=== PATIENT | female | born 1980 | race Caucasian/White ===

== ENCOUNTER 2017-03-28 17:25 | Emergency (ER) | payer BC ==
[2017-03-28] MEDS ORDERED: Ketorolac 30 MG/ML SDV IVPUSH ONE (17:37)
[2017-03-28] MEDS ORDERED: Ondansetron 4 MG/2 ML SDV IVPUSH ONE (17:37)
[2017-03-28] MEDS ORDERED: Sodium Chloride 0.9% 1,000 ML IV ONE (17:37)
--- NOTE | 2017-03-28 17:38 | EDM.PDOC ---
<Christopher Dalton - Last Filed: 03/28/17 17:47> ED HPI GENERAL MEDICAL PROBLEM - General Chief Complaint: Gastrointestinal Problem Stated Complaint: PT HAS FOOD POISONING Time Seen by Provider: 03/28/17 17:38 Source of Information: Reports: Patient - History of Present Illness INITIAL COMMENTS - FREE TEXT/NARRATIVE: HISTORY AND PHYSICAL: History of present illness: [] Patient with acute onset right upper quadrant and epigastric pain after eating pizza rates 10 out of 10 nonradiating nausea several episodes of vomiting and diarrhea No fever chills sweats Review of systems: As per history of present illness and below otherwise all systems reviewed and negative. Past medical history: As per history of present illness and as reviewed below otherwise noncontributory. Surgical history: As per history of present illness and as reviewed below otherwise noncontributory. Social history: No reported history of drug or alcohol abuse. Family history: As per history of present illness and as reviewed below otherwise noncontributory. Physical exam: HEENT: Atraumatic, normocephalic, pupils reactive, negative for conjunctival pallor or scleral icterus, mucous membranes moist, throat clear, neck supple, nontender, trachea midline. Lungs: Clear to auscultation, breath sounds equal bilaterally, chest nontender. Heart: S1S2, regular, negative for clicks, rubs, or JVD. Abdomen: Soft, nondistended, nontender. Negative for masses or hepatosplenomegaly. Negative for costovertebral tenderness. Pelvis: Stable nontender. Genitourinary: Deferred. Rectal: Deferred. Extremities: Atraumatic, negative for cords or calf pain. Neurovascular unremarkable. Neuro: Awake, alert, oriented. Cranial nerves II through XII unremarkable. Cerebellum unremarkable. Motor and sensory unremarkable throughout. Exam nonfocal. Diagnostics: [] lab as below Ultrasound right upper quadrant EKG Therapeutics: [] 1 L normal saline bolus Zofran 8 mg IV Toradol 30 mg IV Protonix 80 mg IV Ativan 1 mg IV Impression: [] Right upper quadrant pain Anxiety Definitive disposition and diagnosis as appropriate pending reevaluation and review of above. Abdominal Pain Score (Numeric/FACES): 8 - Related Data Allergies Allergy/AdvReac Type Severity Reaction Status Date / Time Penicillins Allergy Hives Verified 03/28/17 17:37 Home Meds: Home Meds DULoxetine [Cymbalta] 60 mg PO ONETIME 03/28/17 [History] Course - Vital Signs Last Recorded V/S: Last Vital Signs Temp 37.2 C 03/28/17 17:31 Pulse 111 H 03/28/17 17:31 Resp 16 03/28/17 17:31 BP 137/96 H 03/28/17 17:31 Pulse Ox 100 03/28/17 17:31 - Orders/Labs/Meds Orders: Active Orders 24 hr Category Date Time Status EKG Documentation Completion [RC] STAT Care 03/28/17 17:48 Active Abdomen Ltd [US] Stat Exams 03/28/17 17:38 Taken Labs: Laboratory Tests 03/28/17 03/28/17 03/28/17 Range/Units 17:50 17:50 17:50 WBC 14.03 H (4.0-11.0) K/uL RBC 4.61 (4.30-5.90) M/uL Hgb 12.5 (12.0-16.0) g/dL Hct 38.8 (36.0-46.0) % MCV 84.2 (80.0-98.0) fL MCH 27.1 (27.0-32.0) pg MCHC 32.2 (31.0-37.0) g/dL RDW Std Deviation 46.6 (28.0-62.0) fl RDW Coeff of Ludwin 15 (11.0-15.0) % Plt Count 397 (150-400) K/uL MPV 8.60 (7.40-12.00) fL Nucleated RBC % 0.0 /100WBC Nucleated RBCs # 0 K/uL Sodium 138 (136-146) mmol/L Potassium 3.9 (3.5-5.1) mmol/L Chloride 106 (98-110) mmol/L Carbon Dioxide 19 L (21-31) mmol/L BUN 13 (6.0-23.0) mg/dL Creatinine 0.9 (0.6-1.5) mg/dL Est Cr Clr Drug Dosing 83.23 mL/min Estimated GFR (MDRD) > 60.0 ml/min Glucose 110 (60-110) mg/dL Calcium 9.2 (8.8-10.8) mg/dL Total Bilirubin 0.3 (0.1-1.5) mg/dL AST 24 (5-40) IU/L ALT 16 (8-54) IU/L Alkaline Phosphatase 50 (40-150) Troponin I (0.0-0.29) NG/ML Total Protein 7.4 (6.0-8.0) g/dL Albumin 4.1 (3.5-5.0) g/dL Globulin 3.3 (2.0-3.5) g/dL Albumin/Globulin Ratio 1.2 L (1.3-2.8) Amylase 74 (10-90) U/L Lipase 26 (7-80) U/L Urine Color Urine Appearance Urine pH (5.0-8.0) Ur Specific [place] (1.001-1.035) Urine Protein (NEGATIVE) mg/dL Urine Glucose (UA) (NEGATIVE) mg/dL Urine Ketones (NEGATIVE) mg/dL Urine Occult Blood (NEGATIVE) Urine Nitrite (NEGATIVE) Urine Bilirubin (NEGATIVE) Urine Urobilinogen (<2.0) EU/dL Ur Leukocyte Esterase (NEGATIVE) Urine RBC (0-2/HPF) Urine WBC (0-5/HPF) Ur Epithelial Cells (NONE-FEW) Urine Bacteria (NEGATIVE) Urine Mucus (NONE-MOD) Urine HCG, Qual (NEGATIVE) 03/28/17 03/28/17 03/28/17 Range/Units 17:50 19:24 19:24 WBC (4.0-11.0) K/uL RBC (4.30-5.90) M/uL Hgb (12.0-16.0) g/dL Hct (36.0-46.0) % MCV (80.0-98.0) fL MCH (27.0-32.0) pg MCHC (31.0-37.0) g/dL RDW Std Deviation (28.0-62.0) fl RDW Coeff of [place]win (11.0-15.0) % Plt Count (150-400) K/uL MPV (7.40-12.00) fL Nucleated RBC % /100WBC Nucleated RBCs # K/uL Sodium (136-146) mmol/L Potassium (3.5-5.1) mmol/L Chloride (98-110) mmol/L Carbon Dioxide (21-31) mmol/L BUN (6.0-23.0) mg/dL Creatinine (0.6-1.5) mg/dL Est Cr Clr Drug Dosing mL/min Estimated GFR (MDRD) ml/min Glucose (60-110) mg/dL Calcium (8.8-10.8) mg/dL Total Bilirubin (0.1-1.5) mg/dL AST (5-40) IU/L ALT (8-54) IU/L Alkaline Phosphatase (40-150) Troponin I < 0.10 (0.0-0.29) NG/ML Total Protein (6.0-8.0) g/dL Albumin (3.5-5.0) g/dL Globulin (2.0-3.5) g/dL Albumin/Globulin Ratio (1.3-2.8) Amylase (10-90) U/L Lipase (7-80) U/L Urine Color YELLOW Urine Appearance CLEAR Urine pH 8.0 (5.0-8.0) Ur Specific [place] 1.015 (1.001-1.035) Urine Protein 30 (NEGATIVE) mg/dL Urine Glucose (UA) NEGATIVE (NEGATIVE) mg/dL Urine Ketones 15 H (NEGATIVE) mg/dL Urine Occult Blood NEGATIVE (NEGATIVE) Urine Nitrite NEGATIVE (NEGATIVE) Urine Bilirubin NEGATIVE (NEGATIVE) Urine Urobilinogen 0.2 (<2.0) EU/dL Ur Leukocyte Esterase NEGATIVE (NEGATIVE) Urine RBC 2-4 (0-2/HPF) Urine WBC 0-1 (0-5/HPF) Ur Epithelial Cells OCCASIONAL (NONE-FEW) Urine Bacteria RARE (NEGATIVE) Urine Mucus LIGHT (NONE-MOD) Urine HCG, Qual NEGATIVE (NEGATIVE) Meds: Medications Discontinued Medications Generic Name Dose Route Start Last Admin Trade Name Freq PRN Reason Stop Dose Admin Sodium Chloride 1,000 mls @ 999 mls/hr 03/28/17 17:37 03/28/17 18:07 Normal Saline IV 03/28/17 18:37 999 mls/hr STAT ONE Administration Ketorolac Tromethamine 30 mg 03/28/17 17:37 03/28/17 18:08 Toradol IVPUSH 03/28/17 17:38 30 mg ONETIME ONE Administration Lorazepam 1 mg 03/28/17 17:40 03/28/17 18:07 Ativan IVPUSH 03/28/17 17:41 1 mg ONETIME ONE Administration Ondansetron HCl 8 mg 03/28/17 17:37 03/28/17 18:07 Zofran IVPUSH 03/28/17 17:38 8 mg ONETIME ONE Administration Pantoprazole Sodium 80 mg 03/28/17 17:40 03/28/17 18:07 Protonix Iv IVPUSH 03/28/17 17:41 80 mg .BOLUS ONE Administration Departure - Departure Disposition: Home, Self-Care 01 Clinical Impression: Biliary colic - Discharge Information Forms: ED Department Discharge Additional Instructions: The following information is given to patients seen in the emergency department who are being discharged to home. This information is to outline your options for follow-up care. We provide all patients seen in our emergency department with a follow-up referral. The need for follow-up, as well as the timing and circumstances, are variable depending upon the specifics of your emergency department visit. If you don't have a primary care physician on staff, we will provide you with a referral. We always advise you to contact your personal physician following an emergency department visit to inform them of the circumstance of the visit and for follow-up with them and/or the need for any referrals to a consulting specialist. The emergency department will also refer you to a specialist when appropriate. This referral assures that you have the opportunity for followup care with a specialist. All of these measure are taken in an effort to provide you with optimal care, which includes your followup. Under all circumstances we always encourage you to contact your private physician who remains a resource for coordinating your care. When calling for followup care, please make the office aware that this follow-up is from your recent emergency room visit. If for any reason you are refused follow-up, please contact the [facility] emergency department at and asked to speak to the emergency department charge nurse. [facility] Specialty Care - General Surgery Professional Building [address] [place] [address], [address] [place] [address] Followup primary medical doctor/general surgery above Cipro hydrocodone Zofran as prescribed return as needed as discussed <David Aburto - Last Filed: 03/28/17 20:11> ED HPI GENERAL MEDICAL PROBLEM - History of Present Illness INITIAL COMMENTS - FREE TEXT/NARRATIVE: Ultrasound demonstrates sludge within the gallbladder no evidence for cholecystitis on imaging I discussed case with patient regarding the slight leukocytosis she was put on Cipro and followup with Gen. surgery and her private medical doctor she'll also be given hydrocodone and Zofran for pain she is to return for persistent or worsening pain nausea vomiting fever chills as discussed ED ROS GENERAL - Review of Systems Review Of Systems: ROS reveals no pertinent complaints other than HPI. ED EXAM, GENERAL - Physical Exam Exam: See Below (See dictation) Departure - Departure Time of Disposition: 20:10 Condition: good
[2017-03-28] MEDS ORDERED: Pantoprazole 40 MG Vial IVPUSH ONE (17:40)
[2017-03-28] MEDS ORDERED: LORazepam 2 MG/ML MDV IVPUSH ONE (17:40)
[2017-03-28 18:18] LABS: CHLORIDE,CL 106 mmol/L (98-110); SODIUM,NA 138 mmol/L (136-146)
[2017-03-28 20:41] VITALS: BP 162/83
--- NOTE | 2017-03-31 11:42 | US ---
EXAM DATE: 03/28/17 PATIENT'S AGE: 36 Patient: DANIEL LOYOLA Facility: [place], [place] Site . Site : [id number] Study: US Abdomen [id number]/27/2017 7:13:24 PM Ordering Physician: Pacheco White Final Report: Indication: Right upper quadrant abdominal pain with nausea and vomiting. Findings: Visualized pancreas is unremarkable. Aortic diameter is normal. Inferior vena cava is patent. Liver has uniform echo texture. No mass or cyst. No ductal dilatation. Right kidney is sonographically normal. Length is approximately 9 cm. Gallbladder is normal. Common bile duct is 3 mm at the mj hepatis. Positive sonographic Pederson`s sign. Left kidney is sonographically unremarkable and measures approximately 11 cm. Impression: Positive sonographic Pederson`s sign in the setting of a sonographically normal gallbladder is nonspecific. Dictated by Gautam Steven MD @ Mar 28 2017 7:25PM (Electronic Signature) Report Signed by Proxy. FLAQUITA
== END 2017-03-28 20:29 | disposition home or self-care (01) ==
LOC: MW.ED 17:25
DX: K80.50 Calculus of bile duct without cholangitis or cholecystitis without obstruction (principal); Z88.0 Allergy status to penicillin
CPT/HCPCS: 36415; 76705; 80053; 81001; 81025; 82150; 83690; 84484; 85027; 93005; 96361; 96374; 96375; 99285; C9113; J1885; J2060; J2405; J7040; 99284

== ENCOUNTER 2017-09-21 07:55 | Emergency (ER) | payer BC ==
[2017-09-21] MEDS ORDERED: Ketorolac 30 MG/ML SDV IVPUSH ONE (08:15)
[2017-09-21] MEDS ORDERED: Sodium Chloride 0.9% 1,000 ML IV ONE (08:15)
[2017-09-21] MEDS ORDERED: Ondansetron 4 MG/2 ML SDV IVPUSH ONE (08:15)
--- NOTE | 2017-09-21 08:17 | EDM.PDOC ---
ED HPI GENERAL MEDICAL PROBLEM - General Chief Complaint: Abdominal Pain Stated Complaint: STOMACH PAIN Time Seen by Provider: 09/21/17 08:16 Source of Information: Reports: Patient - History of Present Illness INITIAL COMMENTS - FREE TEXT/NARRATIVE: HISTORY AND PHYSICAL: History of present illness: Abdominal pain that began acutely prior to arrival 6 out of 10 lower abdomen no fever nausea vomiting chills sweats no chest pain shortness breath headache dizziness palpitation about a urine symptoms reported by patient however she has not had a bowel movement since Thursday Review of systems: As per history of present illness and below otherwise all systems reviewed and negative. Past medical history: As per history of present illness and as reviewed below otherwise noncontributory. Surgical history: As per history of present illness and as reviewed below otherwise noncontributory. Social history: No reported history of drug or alcohol abuse. Family history: As per history of present illness and as reviewed below otherwise noncontributory. Physical exam: HEENT: Atraumatic, normocephalic, pupils reactive, negative for conjunctival pallor or scleral icterus, mucous membranes moist, throat clear, neck supple, nontender, trachea midline. Lungs: Clear to auscultation, breath sounds equal bilaterally, chest nontender. Heart: S1S2, regular, negative for clicks, rubs, or JVD. Abdomen: Soft, nondistended, nontender in the upper quadrants however tender left lower quadrant as well as right lower quadrant mild guarding no rebound. Negative for masses or hepatosplenomegaly. Negative for costovertebral tenderness. Pelvis: Stable nontender. Genitourinary: Deferred. Rectal: Deferred. Extremities: Atraumatic, negative for cords or calf pain. Neurovascular unremarkable. Neuro: Awake, alert, oriented. Cranial nerves II through XII unremarkable. Cerebellum unremarkable. Motor and sensory unremarkable throughout. Exam nonfocal. Diagnostics: []Lab as below Abdomen pelvis CT with contrast Therapeutics: []Liter normal saline bolus Toradol 30 mg IV Zofran 8 mg IV Impression: []Abdominal pain Free fluid in the pelvis History of right ovarian cyst which is not present there is a 3.3 cm left ovarian cyst Definitive disposition and diagnosis as appropriate pending reevaluation and review of above. Lower Abdominal Pain Score (Numeric/FACES): 6 - Related Data Allergies Allergy/AdvReac Type Severity Reaction Status Date / Time ciprofloxacin [From Cipro] Allergy Hives Verified 09/21/17 08:01 Penicillins Allergy Hives Verified 09/21/17 08:01 Home Meds: Home Meds LORazepam 0.5 mg PO ASDIRECTED PRN 05/08/17 [History] Norgestimate-Ethinyl Estradiol [Tri-Sprintec Tablet] 1 tab PO ASDIRECTED [History] Venlafaxine [Effexor] 75 mg PO DAILY 09/21/17 [History] Past Medical History HEENT History: Reports: None Cardiovascular History: Reports: None Respiratory History: Reports: None Gastrointestinal History: Reports: None Genitourinary History: Reports: None 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: Other (See Below) Other OB/BYN History: Musculoskeletal History: Reports: None Neurological History: Reports: None Psychiatric History: Reports: Anxiety Endocrine/Metabolic History: Reports: None Hematologic History: Reports: None Immunologic History: Reports: None Oncologic (Cancer) History: Reports: None Dermatologic History: Reports: None - Infectious Disease History Infectious Disease History: Reports: None - Past Surgical History Head Surgeries/Procedures: Reports: None Social & Family History - Family History Family Medical History: Noncontributory - Tobacco Use Smoking Status *Q: Current Some Day Smoker Years of Tobacco use: 10 Packs/Tins Daily: 0.1 - Caffeine Use Caffeine Use: Reports: Coffee - Recreational Drug Use Recreational Drug Use: No ED ROS GENERAL - Review of Systems Review Of Systems: ROS reveals no pertinent complaints other than HPI. ED EXAM, GENERAL - Physical Exam Exam: See Below Course - Vital Signs Last Recorded V/S: Last Vital Signs Temp 97.4 F 09/21/17 08:07 Pulse 94 09/21/17 08:07 Resp 18 09/21/17 08:07 BP 116/77 09/21/17 08:07 Pulse Ox 100 09/21/17 08:07 - Orders/Labs/Meds Labs: Laboratory Tests 09/21/17 09/21/17 09/21/17 Range/Units 08:05 08:05 08:05 WBC 6.06 (4.0-11.0) K/uL RBC 4.06 L (4.30-5.90) M/uL Hgb 11.1 L (12.0-16.0) g/dL Hct 34.3 L (36.0-46.0) % MCV 84.5 (80.0-98.0) fL MCH 27.3 (27.0-32.0) pg MCHC 32.4 (31.0-37.0) g/dL RDW Std Deviation 41.0 (28.0-62.0) fl RDW Coeff of [place]win 13 (11.0-15.0) % Plt Count 370 (150-400) K/uL MPV 8.80 (7.40-12.00) fL Neut % (Auto) 57.1 (48.0-80.0) % Lymph % (Auto) 35.5 (16.0-40.0) % [place] % (Auto) 6.3 (0.0-15.0) % Eos % (Auto) 0.8 (0.0-7.0) % Baso % (Auto) 0.3 (0.0-1.5) % Neut # (Auto) 3.5 (1.4-5.7) K/uL Lymph # (Auto) 2.2 (0.6-2.4) K/uL [place] # (Auto) 0.4 (0.0-0.8) K/uL Eos # (Auto) 0.1 (0.0-0.7) K/uL Baso # (Auto) 0.0 (0.0-0.1) K/uL Nucleated RBC % 0.0 /100WBC Nucleated RBCs # 0 K/uL Sodium 137 (136-146) mmol/L Potassium 3.5 (3.5-5.1) mmol/L Chloride 107 (98-110) mmol/L Carbon Dioxide 22 (21-31) mmol/L BUN 14 (6.0-23.0) mg/dL Creatinine 0.8 (0.6-1.5) mg/dL Est Cr Clr Drug Dosing 97.13 mL/min Estimated GFR (MDRD) > 60.0 ml/min Glucose 94 (60-110) mg/dL Calcium 8.6 L (8.8-10.8) mg/dL Total Bilirubin 0.4 (0.1-1.5) mg/dL AST 18 (5-40) IU/L ALT 16 (8-54) IU/L Alkaline Phosphatase 48 (40-150) C-Reactive Protein (0.0-0.5) mg/dL Total Protein 6.4 (6.0-8.0) g/dL Albumin 3.5 (3.5-5.0) g/dL Globulin 2.9 (2.0-3.5) g/dL Albumin/Globulin Ratio 1.2 L (1.3-2.8) Amylase 61 (10-90) U/L Lipase 34 (7-80) U/L HCG, Quant < 1.2 mIU/mL Urine Color Urine Appearance Urine pH (5.0-8.0) Ur Specific [place] (1.001-1.035) Urine Protein (NEGATIVE) mg/dL Urine Glucose (UA) (NEGATIVE) mg/dL Urine Ketones (NEGATIVE) mg/dL Urine Occult Blood (NEGATIVE) Urine Nitrite (NEGATIVE) Urine Bilirubin (NEGATIVE) Urine Urobilinogen (<2.0) EU/dL Ur Leukocyte Esterase (NEGATIVE) Urine RBC (0-2/HPF) Urine WBC (0-5/HPF) Ur Epithelial Cells (NONE-FEW) Urine Bacteria (NEGATIVE) 09/21/17 09/21/17 Range/Units 08:05 08:10 WBC (4.0-11.0) K/uL RBC (4.30-5.90) M/uL Hgb (12.0-16.0) g/dL Hct (36.0-46.0) % MCV (80.0-98.0) fL MCH (27.0-32.0) pg MCHC (31.0-37.0) g/dL RDW Std Deviation (28.0-62.0) fl RDW Coeff of [place] (11.0-15.0) % Plt Count (150-400) K/uL MPV (7.40-12.00) fL Neut % (Auto) (48.0-80.0) % Lymph % (Auto) (16.0-40.0) % [place] % (Auto) (0.0-15.0) % Eos % (Auto) (0.0-7.0) % Baso % (Auto) (0.0-1.5) % Neut # (Auto) (1.4-5.7) K/uL Lymph # (Auto) (0.6-2.4) K/uL [place] # (Auto) (0.0-0.8) K/uL Eos # (Auto) (0.0-0.7) K/uL Baso # (Auto) (0.0-0.1) K/uL Nucleated RBC % /100WBC Nucleated RBCs # K/uL Sodium (136-146) mmol/L Potassium (3.5-5.1) mmol/L Chloride (98-110) mmol/L Carbon Dioxide (21-31) mmol/L BUN (6.0-23.0) mg/dL Creatinine (0.6-1.5) mg/dL Est Cr Clr Drug Dosing mL/min Estimated GFR (MDRD) ml/min Glucose (60-110) mg/dL Calcium (8.8-10.8) mg/dL Total Bilirubin (0.1-1.5) mg/dL AST (5-40) IU/L ALT (8-54) IU/L Alkaline Phosphatase (40-150) C-Reactive Protein 0.43 (0.0-0.5) mg/dL Total Protein (6.0-8.0) g/dL Albumin (3.5-5.0) g/dL Globulin (2.0-3.5) g/dL Albumin/Globulin Ratio (1.3-2.8) Amylase (10-90) U/L Lipase (7-80) U/L HCG, Quant mIU/mL Urine Color YELLOW Urine Appearance CLEAR Urine pH 7.5 (5.0-8.0) Ur Specific [place] 1.015 (1.001-1.035) Urine Protein NEGATIVE (NEGATIVE) mg/dL Urine Glucose (UA) NEGATIVE (NEGATIVE) mg/dL Urine Ketones NEGATIVE (NEGATIVE) mg/dL Urine Occult Blood NEGATIVE (NEGATIVE) Urine Nitrite NEGATIVE (NEGATIVE) Urine Bilirubin NEGATIVE (NEGATIVE) Urine Urobilinogen 0.2 (<2.0) EU/dL Ur Leukocyte Esterase NEGATIVE (NEGATIVE) Urine RBC 0-1 (0-2/HPF) Urine WBC 0-1 (0-5/HPF) Ur Epithelial Cells RARE (NONE-FEW) Urine Bacteria RARE (NEGATIVE) Meds: Medications Discontinued Medications Generic Name Dose Route Start Last Admin Trade Name Freq PRN Reason Stop Dose Admin Sodium Chloride 1,000 mls @ 999 mls/hr 09/21/17 08:15 09/21/17 08:26 Normal Saline IV 09/21/17 09:15 999 mls/hr STAT ONE Administration Iopamidol 100 ml 09/21/17 09:54 09/21/17 09:56 Isovue-370 (76%) IVPUSH 09/21/17 09:55 100 ml ONETIME STA Administration Ketorolac Tromethamine 30 mg 09/21/17 08:15 09/21/17 08:26 Toradol IVPUSH 09/21/17 08:16 30 mg ONETIME ONE Administration Ondansetron HCl 8 mg 09/21/17 08:15 09/21/17 08:26 Zofran IVPUSH 09/21/17 08:16 8 mg ONETIME ONE Administration Departure - Departure Time of Disposition: 10:36 Disposition: Home, Self-Care 01 Condition: Good Clinical Impression: Ovarian cyst, Abdominal pain - Discharge Information Forms: ED Department Discharge Additional Instructions: Medication as prescribed Return if symptoms persist or worsen Follow-up with gynecology, call number below for appropriate appointment [facility] [place] [phone] The following information is given to patients seen in the emergency department who are being discharged to home. This information is to outline your options for follow-up care. We provide all patients seen in our emergency department with a follow-up referral. The need for follow-up, as well as the timing and circumstances, are variable depending upon the specifics of your emergency department visit. If you don't have a primary care physician on staff, we will provide you with a referral. We always advise you to contact your personal physician following an emergency department visit to inform them of the circumstance of the visit and for follow-up with them and/or the need for any referrals to a consulting specialist. The emergency department will also refer you to a specialist when appropriate. This referral assures that you have the opportunity for follow-up care with a specialist. All of these measure are taken in an effort to provide you with optimal care, which includes your follow-up. Under all circumstances we always encourage you to contact your private physician who remains a resource for coordinating your care. When calling for follow-up care, please make the office aware that this follow-up is from your recent emergency room visit. If for any reason you are refused follow-up, please contact the [facility] emergency department at and asked to speak to the emergency department charge nurse.
[2017-09-21 08:40] LABS: CHLORIDE,CL 107 mmol/L (98-110); SODIUM,NA 137 mmol/L (136-146)
[2017-09-21] MEDS ORDERED: Iopamidol 755 Mg/ML 100 ML Bottle IVPUSH STA (09:54)
--- NOTE | 2017-09-21 10:07 | CT ---
CT of the abdomen and pelvis with contrast. HISTORY: Pain TECHNIQUE: Axial CT images were obtained of the abdomen and pelvis following administration of 96 mL of Isovue-370 in the right antecubital fossa without complication. Coronal and sagittal reconstructio ns obtained. Comparison: 09/21/2017. FINDINGS: The lung bases are clear, no pleural effusion. The liver, spleen, adrenal glands, pancreas appear normal. The gallbladder is normal. There is no bul ky retroperitoneal lymphadenopathy or abdominal ascites. The kidneys enhance and function symmetrically without evidence of obstructive uropathy. There is a t iny cyst within the midpole of the right kidney. The large and small bowel are normal in caliber without evidence of obstruction. No focal pericolonic inflammation. The appendix appears normal in size. There is small amount of free fluid within the pe lvis. There is a 3.3 cm left ovarian cyst. The left ovary is noted within the midline region anterior to the uterus. The urinary bladder is normal. No free air. There are stable small lucencies noted within the T11 vertebral body, grossly unchanged. Otherwise no suspicious osseous abnormalities identified. IMPRESSION: 1. Small amount of free pelvic fluid, etiology is uncertain, this is slightly more prominent in the n ormal physiologic amount. 2. There is a 3.3 cm left ovarian cyst.
[2017-09-21 11:03] VITALS: BP 119/85
== END 2017-09-21 11:02 | disposition home or self-care (01) ==
LOC: MW.ED 07:55
DX: N83.202 Unspecified ovarian cyst, left side (principal); F17.210 Nicotine dependence, cigarettes, uncomplicated; Z88.1 Allergy status to other antibiotic agents; Z88.0 Allergy status to penicillin; Z79.899 Other long term (current) drug therapy
CPT/HCPCS: 36415; 74177; 80053; 81001; 82150; 83690; 84702; 85025; 86140; 96361; 96374; 96375; 99284; J1885; J2405; J7040; Q9967; 99283

== ENCOUNTER 2019-02-17 06:19 | Day surgery (SDC) | payer BC ==
[2019-02-16 14:47] LABS: CHLORIDE,CL 105 mmol/L (98-107); SODIUM,NA 140 mmol/L (136-145)
[~2019-02-17 06:19] MED LIST: Sodium Chloride 0.9% 10 ML SDV IV PRN; Sodium Chloride 0.9% 10 ML Syringe FLUSH PRN; Sodium Chloride 0.9% 2.5 ML Syringe FLUSH PRN; ceFAZolin 2 GM in Premix Bag 1 BAG IV ONE
[2019-02-17] MEDS ORDERED: Ondansetron 4 MG/2 ML SDV ONE (06:56)
[2019-02-17] MEDS ORDERED: Propofol 200 MG/20 ML SDV ONE (06:56)
[2019-02-17] MEDS ORDERED: Rocuronium 100 MG/10 ML Syringe ONE (06:56)
[2019-02-17] MEDS ORDERED: Lidocaine 2% 5 ML SDV ONE (06:56)
[2019-02-17] MEDS ORDERED: Midazolam 1 MG/ML 2 ML SDV ONE (06:56)
[2019-02-17] MEDS ORDERED: fentaNYL 250 MCG/5 ML SDV ONE (06:56)
[2019-02-17] MEDS ORDERED: Neostigmine Methylsulfate 1 MG/ML 5 ML Syringe ONE (06:58)
[2019-02-17] MEDS ORDERED: Glycopyrrolate 0.2 MG/ML SDV ONE (06:58)
[2019-02-17] MEDS: Lactated Ringers 1,000 ML IV SCH ×3 (07:25→23:30)
--- NOTE | 2019-02-17 07:43 | PCM.PREANE ---
Preanesthetic Assessment - Anesthesia/Transfusion/Family Hx Anesthesia History: Prior Anesthesia Without Reaction Family History of Anesthesia Reaction: No Transfusion History: No Prior Transfusion(s) - Review of Systems General: No Symptoms Pulmonary: No Symptoms Cardiovascular: No Symptoms Gastrointestinal: No Symptoms Neurological: No Symptoms Other: Reports: None - Physical Assessment NPO Status Date: 02/17/19 NPO Status Time: 06:30 O2 Sat by Pulse Oximetry: 96 Respiratory Rate: 18 Vital Signs: Last Vital Signs Temp 97.2 F 02/17/19 07:20 Pulse 99 02/17/19 07:20 Resp 18 02/17/19 07:20 BP 114/74 02/17/19 07:20 Pulse Ox 96 02/17/19 07:20 Height: 5 ft 8 in Weight: 76.657 kg ASA Class: 2 Mental Status: Alert & Oriented x3 Airway Class: Mallampati = 2 Dentition: Reports: Normal Dentition ROM/Head Extension: Full Lungs: Clear to Auscultation, Normal Respiratory Effort Cardiovascular: Regular Rate, Regular Rhythm - Lab Values: Laboratory Last Values WBC 5.79 K/uL (4.0-11.0) 02/16/19 14:21 RBC 4.08 M/uL (4.30-5.90) L 02/16/19 14:21 Hgb 9.0 g/dL (12.0-16.0) L 02/16/19 14:21 Hct 30.1 % (36.0-46.0) L 02/16/19 14:21 MCV 73.8 fL (80.0-98.0) L 02/16/19 14:21 MCH 22.1 pg (27.0-32.0) L 02/16/19 14:21 MCHC 29.9 g/dL (31.0-37.0) L 02/16/19 14:21 RDW Std Deviation 39.8 fl (28.0-62.0) 02/16/19 14:21 RDW Coeff of Ludwin 15 % (11.0-15.0) 02/16/19 14:21 Plt Count 440 K/uL (150-400) H 02/16/19 14:21 MPV 8.00 fL (7.40-12.00) 02/16/19 14:21 Sodium 140 mmol/L (136-145) 02/16/19 14:21 Potassium 3.4 mmol/L (3.5-5.1) L 02/16/19 14:21 Chloride 105 mmol/L (98-107) 02/16/19 14:21 Carbon Dioxide 27.4 mmol/L (21.0-32.0) 02/16/19 14:21 BUN 12 mg/dL (7.0-18.0) 02/16/19 14:21 Creatinine 0.9 mg/dL (0.6-1.0) 02/16/19 14:21 Est Cr Clr Drug Dosing 84.66 mL/min 02/16/19 14:21 Estimated GFR (MDRD) > 60.0 ml/min 02/16/19 14:21 Glucose 107 mg/dL (74-106) H 02/16/19 14:21 Calcium 8.4 mg/dL (8.5-10.1) L 02/16/19 14:21 HCG, Qual NEGATIVE (NEG) 02/16/19 14:21 Blood Type A POSITIVE 02/16/19 14:21 Antibody Screen NEGATIVE 02/16/19 14:21 Crossmatch See Detail 02/16/19 14:21 - Allergies Allergies/Adverse Reactions: Allergies Allergy/AdvReac Type Severity Reaction Status Date / Time ciprofloxacin [From Cipro] Allergy Hives Verified 02/11/19 15:11 Penicillins Allergy "sores on Verified 02/11/19 15:10 lips" - Anesthesia Plan Pre-Op Medication Ordered: Other (scop) - Acknowledgements Anesthesia Type Planned: General Anesthesia Pt an Appropriate Candidate for the Planned Anesthesia: Yes Alternatives and Risks of Anesthesia Discussed w Pt/Guardian: Yes Pt/Guardian Understands and Agrees with Anesthesia Plan: Yes Additional Comments: PMH: anemia, smoker PLAN: get PreAnesthesia Questionnaire HEENT History: Reports: Other (See Below) Other HEENT History: wears glasses Cardiovascular History: Reports: None Respiratory History: Reports: None Gastrointestinal History: Reports: Pancreatitis Genitourinary History: Reports: None [employer] History: Reports: Musculoskeletal History: Reports: Fracture Other Musculoskeletal History: hx fx ankle Neurological History: Reports: None Psychiatric History: Reports: Anxiety, Depression Endocrine/Metabolic History: Reports: None Hematologic History: Reports: None Immunologic History: Reports: None Oncologic (Cancer) History: Reports: None Dermatologic History: Reports: None - Infectious Disease History Infectious Disease History: Reports: None - Past Surgical History Head Surgeries/Procedures: Reports: None HEENT Surgical History: Reports: Adenoidectomy, Tonsillectomy Respiratory Surgical History: Reports: None GI Surgical History: Reports: None Female Surgical History: Reports: Section Endocrine Surgical History: Reports: None Neurological Surgical History: Reports: None Musculoskeletal Surgical History: Reports: None Oncologic Surgical History: Reports: None Dermatological Surgical History: Reports: None - SUBSTANCE USE Smoking Status *Q: Current Some Day Smoker Tobacco Use Within Last Twelve Months: Cigarettes Recreational Drug Use History: No - HOME MEDS Home Medications: Home Meds Venlafaxine [Effexor] 150 mg PO DAILY 09/21/17 [History] LORazepam 1 mg PO ASDIRECTED PRN 02/11/19 [History] - CURRENT (IN HOUSE) MEDS Current Meds: Current Medications Lactated Ringer's (Ringers, Lactated) 1,000 mls @ 125 mls/hr IV ASDIRECTED SONIA Last Admin: 02/17/19 07:25 Dose: 125 mls/hr Sodium Chloride (Saline Flush) 10 ml FLUSH ASDIRECTED PRN PRN Reason: Keep Vein Open Sodium Chloride (Saline Flush) 2.5 ml FLUSH ASDIRECTED PRN PRN Reason: Keep Vein Open Sodium Chloride (Normal Saline) 10 ml IV ASDIRECTED PRN PRN Reason: IV Use Discontinued Medications Fentanyl (Sublimaze) Confirm Administered Dose 250 mcg .ROUTE .STK-MED ONE Stop: 02/17/19 06:57 Glycopyrrolate (Robinul) Confirm Administered Dose 0.4 mg .ROUTE .STK-MED ONE Stop: 02/17/19 06:59 Cefazolin Sodium/Dextrose 2 gm (/ Premix) 50 mls @ 100 mls/hr IV ONETIME ONE Stop: 02/16/19 13:19 Lidocaine (Xylocaine-Mpf 2%) Confirm Administered Dose 5 ml .ROUTE .STK-MED ONE Stop: 02/17/19 06:57 Midazolam HCl (Versed 1 Mg/Ml) Confirm Administered Dose 2 mg .ROUTE .STK-MED ONE Stop: 02/17/19 06:57 Neostigmine Methylsulfate (Neostigmine) Confirm Administered Dose 5 mg .ROUTE .STK-MED ONE Stop: 02/17/19 06:59 Ondansetron HCl (Zofran) Confirm Administered Dose 4 mg .ROUTE .ST-MED ONE Stop: 02/17/19 06:57 Propofol (Diprivan 20 Ml) Confirm Administered Dose 200 mg .ROUTE .STK-MED ONE Stop: 02/17/19 06:57 Rocuronium [place] (Zemuron) Confirm Administered Dose 100 mg .ROUTE .[facility] ONE Stop: 02/17/19 06:57 Succinylcholine Chloride (Succinylcholine Chloride) Confirm Administered Dose 200 mg .ROUTE .[facility] ONE Stop: 02/17/19 06:57
[2019-02-17] MEDS ORDERED: Fluorescein 5 ML Vial ONE (07:49)
[2019-02-17] MEDS ORDERED: Scopolamine 1.5 MG Transdermal Patch TRDERM PRN (07:50)
[2019-02-17] MEDS ORDERED: Sodium Chloride 0.9% 20 ML ONE (07:55)
[2019-02-17] MEDS ORDERED: ceFAZolin 1 GM Vial ONE (07:55)
[2019-02-17] MEDS ORDERED: Furosemide 40 MG/4 ML VIAL ONE (08:11)
[2019-02-17] MEDS ORDERED: ePHEDrine 50 MG/ML SDV ONE (08:27)
[2019-02-17] MEDS ORDERED: Phenylephrine/Normal Saline 100 MCG/ML 10 ML Syringe ONE (08:30)
[2019-02-17] MEDS ORDERED: Metoprolol Tartrate 5 MG/5 ML SDV ONE (08:34)
[2019-02-17] MEDS ORDERED: HYDROmorphone 2 MG/ML Syringe ONE (08:38)
[2019-02-17] MEDS ORDERED: fentaNYL 100 MCG/2 ML SDV ONE (08:46)
[2019-02-17] MEDS ORDERED: Dexamethasone 4 MG/ML 5 ML MDV ONE (08:47)
[2019-02-17] MEDS ORDERED: Naloxone 0.4 MG/ML Syringe IVPUSH PRN (08:59)
[2019-02-17] MEDS ORDERED: Albuterol 0.083% 2.5 MG/3 ML Neb Soln NEB PRN (08:59)
[2019-02-17] MEDS ORDERED: fentaNYL 100 MCG/2 ML SDV IVPUSH PRN (08:59)
[2019-02-17] MEDS ORDERED: Atropine 0.1 MG/ML 10 ML Syringe IVPUSH PRN ×2 (08:59)
[2019-02-17] MEDS ORDERED: 50% Dextrose in Water 50 ML Syringe IVPUSH PRN (08:59)
[2019-02-17] MEDS ORDERED: EPINEPHrine 1:10,000 1 MG/10 ML Syringe IVPUSH PRN (08:59)
[2019-02-17] MEDS ORDERED: Octyl 2-Cyanoacrylate 1 Tube ONE (09:44)
[2019-02-17] MEDS ORDERED: Acetaminophen/oxyCODONE 325-5 MG Tab PO PRN (09:49)
[2019-02-17] MEDS ORDERED: Ondansetron 4 MG/2 ML SDV IVPUSH PRN (09:49)
[2019-02-17] MEDS ORDERED: Promethazine 25 MG/ML SDV IM PRN (09:49)
[2019-02-17] MEDS ORDERED: Morphine 4 MG/ML Syringe IVPUSH PRN (09:49)
[2019-02-17] MEDS ORDERED: Ketorolac 30 MG/ML SDV IVPUSH PRN (09:49)
[2019-02-17] MEDS ORDERED: Ketorolac 30 MG/ML SDV IVPUSH ONE (09:49)
--- NOTE | 2019-02-17 09:53 | PCM.OPNOTE ---
- General Post-Op/Procedure Note Date of Surgery/Procedure: 02/17/19 Operative Procedure(s): TLH and Cystoscopy Pre Op Diagnosis: Bleeding Post-Op Diagnosis: Same Anesthesia Technique: General LMA Primary Surgeon: Thomas Abdul EBL in mLs: 100 Complications: None Condition: Good
--- NOTE | 2019-02-17 11:06 | PCM.POSTAN ---
POST ANESTHESIA ASSESSMENT - MENTAL STATUS Mental Status: Alert, Oriented - VITAL SIGNS Pulse Rate: 110 SaO2: 99 Resp Rate: 12 - RESPIRATORY Respiratory Status: Respiratory Rate WNL, Airway Patent, O2 Saturation Stable - CARDIOVASCULAR CV Status: Pulse Rate WNL, Blood Pressure Stable - GASTROINTESTINAL GI Status: No Symptoms - POST OP HYDRATION Hydration Status: Adequate & Stable
[2019-02-17] MEDS ORDERED: ceFAZolin 2 GM in Premix Bag 1 BAG IV ONE (11:45)
--- NOTE | 2019-02-17 15:22 | OR ---
SURGEON: Thomas Abdul MD DATE OF PROCEDURE: PREOPERATIVE DIAGNOSIS: Menometrorrhagia. POSTOPERATIVE DIAGNOSIS: Menometrorrhagia. OPERATION PERFORMED: Total laparoscopic hysterectomy, laparoscopic salpingectomy preserving both ovaries, and cystoscopy. 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 ANESTHESIA: General with endotracheal intubation, Mr. Barry Holden and Dr. Ruiz. ESTIMATED BLOOD LOSS: 100 mL. COMPLICATIONS: None. FINDINGS: Uterus is about 10 to 11 week size. Both tubes and ovaries essentially are normal. INDICATION FOR SURGERY: [place] referred to the admit note. PROCEDURE IN DETAIL: The patient was brought to the OR, properly identified, and after adequate level of anesthesia, the patient was placed in lithotomy position with an access to the abdomen and the vagina. The patient was prepped and draped in sterile fashion as usual. Olivares catheter was placed in the bladder for drainage and the compromised manipulator is placed in the uterus for manipulation and then the operation is shifted abdominally. Stab wound was done beneath the umbilicus. The Veress needle placed in the peritoneal cavity and that cavity insufflated to 3.5 L of carbon dioxide. Then, utilizing the Visiport technique, 5 mm trocar centered infraumbilically and then after that, the patient was placed in steep Trendelenburg. A 10/12 trocar placed in the left iliac fossa and 5 mm trocar in the right iliac fossa. The operation started by identifying the organ in the pelvis, the uterus, tubes, and ovary identifying the landmark of the pelvis and the pelvic sidewall. Once we were done, the superior pedicle was coagulated and transected using the SAMAN-7 Harmonic scapula. The tubes are included with the specimen, the ovary is preserved, and then the round ligament on both sides coagulated and transected in the same manner, and then the anterior leaf of the broad ligament dissected downward medially pushing the bladder completely away from the operative field. Once that is done, then the uterine vessel was skeletonized, coagulated, and transected at the level of the manipulator on both sides using the Saman Harmonic scapula. Next step is circular incision in the vaginal mucosa around the tip of the manipulator is done detaching the cervix from its attachment to the vagina. Cervix and both tubes were removed vaginally and then pneumoperitoneum re-established by placing vaginal pack in the vagina. A thorough irrigation of all operative field shows no oozing, no bleeding, and inspection of all the pedicles. We proceeded to close the vagina laparoscopically using 2-0 PDS interrupted suture. While we were doing that, we asked Anesthesia to give the patient fluorescein and after closing the vagina and making sure that there is no bleeding and there is no oozing from all the pedicle, the abdomen was deflated, and the patient was taken off Trendelenburg and cystoscopy. Olivares catheter was removed and cystoscopy was performed. The bladder was intact. Both ureteric orifices seen with the dye coming from both of them. Thus, the patency of both ureters verified. Satisfied with these findings, the cystoscopy ended, and then the laparoscopic incision was closed with 2-0 Vicryl layer. Instrument and sponge count were correct. The patient tolerated the procedure well, went to recovery room in stable general condition. JARET / ROGELIO /[id number]
[2019-02-17] MEDS: Acetaminophen/oxyCODONE 325-5 MG Tab PO PRN (20:09)
[2019-02-18] MEDS: Acetaminophen/oxyCODONE 325-5 MG Tab PO PRN (03:34)
[2019-02-18 05:40] LABS: CHLORIDE,CL 108 mmol/L (98-107); SODIUM,NA 142 mmol/L (136-145)
[2019-02-18 07:50] VITALS: BP 98/61
--- NOTE | 2019-02-18 09:53 | PCM.SURGPN ---
- General Info Date of Service: 02/18/19 POD#: 1 Functional Status: Reports: Pain Controlled - Review of Systems General: Reports: No Symptoms HEENT: Reports: No Symptoms Pulmonary: Reports: No Symptoms Cardiovascular: Reports: No Symptoms Gastrointestinal: Reports: No Symptoms Genitourinary: Reports: No Symptoms Musculoskeletal: Reports: No Symptoms Skin: Reports: No Symptoms Neurological: Reports: No Symptoms Psychiatric: Reports: No Symptoms - Patient Data Vitals - Most Recent: Last Vital Signs Temp 36.8 C 02/18/19 07:50 Pulse 82 02/18/19 07:50 Resp 16 02/18/19 07:50 BP 98/61 02/18/19 07:50 Pulse Ox 97 02/18/19 07:50 Weight - Most Recent: 76.657 kg I&O - Last 24 Hours: Intake & Output 02/17/19 02/18/19 02/18/19 22:59 06:59 14:59 Intake Total 1884 2424 240 Output Total 2820 3050 Balance -936 -626 240 Lab Results Last 24 Hrs: Laboratory Results - last 24 hr 02/18/19 02/18/19 Range/Units 05:00 05:00 WBC 8.99 (4.0-11.0) K/uL RBC 3.38 L (4.30-5.90) M/uL Hgb 7.4 L (12.0-16.0) g/dL Hct 25.2 L (36.0-46.0) % MCV 74.6 L (80.0-98.0) fL MCH 21.9 L (27.0-32.0) pg MCHC 29.4 L (31.0-37.0) g/dL RDW Std Deviation 41.2 (28.0-62.0) fl RDW Coeff of Ludwin 15 (11.0-15.0) % Plt Count 319 (150-400) K/uL MPV 8.40 (7.40-12.00) fL Neut % (Auto) 61.0 (48.0-80.0) % Lymph % (Auto) 29.9 (16.0-40.0) % [place] % (Auto) 8.9 (0.0-15.0) % Eos % (Auto) 0.1 (0.0-7.0) % Baso % (Auto) 0.1 (0.0-1.5) % Neut # (Auto) 5.5 (1.4-5.7) K/uL Lymph # (Auto) 2.7 H (0.6-2.4) K/uL [place] # (Auto) 0.8 (0.0-0.8) K/uL Eos # (Auto) 0.0 (0.0-0.7) K/uL Baso # (Auto) 0.0 (0.0-0.1) K/uL Nucleated RBC % 0.0 /100WBC Nucleated RBCs # 0 K/uL Sodium 142 (136-145) mmol/L Potassium 3.9 (3.5-5.1) mmol/L Chloride 108 H (98-107) mmol/L Carbon Dioxide 27.7 (21.0-32.0) mmol/L BUN 8 (7.0-18.0) mg/dL Creatinine 0.9 (0.6-1.0) mg/dL Est Cr Clr Drug Dosing 84.66 mL/min Estimated GFR (MDRD) > 60.0 ml/min Glucose 92 (74-106) mg/dL Calcium 8.0 L (8.5-10.1) mg/dL Med Orders - Current: Current Medications Albuterol (Proventil Neb Soln) 2.5 mg NEB ONETIME PRN PRN Reason: Wheezing Atropine Sulfate (Atropine 0.1 Mg/Ml) 0.5 mg IVPUSH ASDIRECTED PRN PRN Reason: Hypo-perfusion Atropine Sulfate (Atropine 0.1 Mg/Ml) 1 mg IVPUSH ASDIRECTED PRN PRN Reason: Hypo-Perfusion Dextrose/Water (Dextrose 50% In Water) 50 ml IVPUSH ASDIRECTED PRN PRN Reason: Hypoglycemia Epinephrine HCl (Epinephrine 1:10,000) 1 mg IVPUSH ASDIRECTED PRN PRN Reason: ACLS Guidelines Fentanyl (Sublimaze) 50 mcg IVPUSH Q5M PRN PRN Reason: Pain Lactated Ringer's (Ringers, Lactated) 1,000 mls @ 125 mls/hr IV ASDIRECTED [facility] Last Admin: 02/17/19 23:30 Dose: 125 mls/hr Ketorolac Tromethamine (Toradol) 30 mg IVPUSH Q6H PRN PRN Reason: Pain (severe 7-10) Stop: 02/22/19 09:49 Last Admin: 02/17/19 18:37 Dose: 30 mg Morphine Sulfate (Morphine) 4 mg IVPUSH Q2H PRN PRN Reason: Pain (severe 7-10) Naloxone HCl (Narcan) 0.1 mg IVPUSH ASDIRECTED PRN PRN Reason: Respiratory Depression Ondansetron HCl (Zofran) 4 mg IVPUSH Q6H PRN PRN Reason: Nausea/Vomiting Oxycodone/Acetaminophen (Percocet 325-5 Mg) 1 tab PO Q4H PRN PRN Reason: Pain (moderate 4-6) Oxycodone/Acetaminophen (Percocet 325-5 Mg) 2 tab PO Q4H PRN PRN Reason: Pain (moderate 4-6) Last Admin: 02/18/19 03:34 Dose: 2 tab Promethazine HCl (Phenergan) 25 mg IM Q6H PRN PRN Reason: Nausea/Vomiting Scopolamine (Transderm-Scop) 1.5 mg TRDERM Q72H PRN PRN Reason: Nausea/Vomiting Last Admin: 02/17/19 07:50 Dose: 1.5 mg Sodium Chloride (Saline Flush) 10 ml FLUSH ASDIRECTED PRN PRN Reason: Keep Vein Open Sodium Chloride (Saline Flush) 2.5 ml FLUSH ASDIRECTED PRN PRN Reason: Keep Vein Open Sodium Chloride (Normal Saline) 10 ml IV ASDIRECTED PRN PRN Reason: IV Use Discontinued Medications Cefazolin Sodium (Ancef) Confirm Administered Dose 2 gm .ROUTE .STK-MED ONE Stop: 02/17/19 07:56 Dexamethasone (Dexamethasone) Confirm Administered Dose 20 mg .ROUTE .STK-MED ONE Stop: 02/17/19 08:48 Ephedrine Sulfate (Ephedrine Sulfate) Confirm Administered Dose 50 mg .ROUTE .STK-MED ONE Stop: 02/17/19 08:28 Fentanyl (Sublimaze) Confirm Administered Dose 250 mcg .ROUTE .STK-MED ONE Stop: 02/17/19 06:57 Fentanyl (Sublimaze) Confirm Administered Dose 100 mcg .ROUTE .STK-MED ONE Stop: 02/17/19 08:47 Fluorescein Sodium (Ak-Fluor) Confirm Administered Dose 5 ml .ROUTE .STK-MED ONE Stop: 02/17/19 07:50 Furosemide (Lasix) Confirm Administered Dose 40 mg .ROUTE .[facility] ONE Stop: 02/17/19 08:12 Glycopyrrolate (Robinul) Confirm Administered Dose 0.4 mg .ROUTE .[facility] ONE Stop: 02/17/19 06:59 Hydromorphone HCl (Dilaudid) Confirm Administered Dose 2 mg .ROUTE .[facility] ONE Stop: 02/17/19 08:39 Cefazolin Sodium/Dextrose 2 gm (/ Premix) 50 mls @ 100 mls/hr IV ONETIME ONE Stop: 02/16/19 13:19 Last Admin: 02/17/19 11:39 Dose: Not Given Sodium Chloride (Normal Saline) Confirm Administered Dose 20 mls @ as directed .ROUTE .[facility] ONE Stop: 02/17/19 07:56 Cefazolin Sodium/Dextrose 2 gm (/ Premix) 50 mls @ 100 mls/hr IV ONETIME ONE Stop: 02/17/19 12:14 Last Admin: 02/17/19 11:43 Dose: 100 mls/hr Ketorolac Tromethamine (Toradol) 30 mg IVPUSH ONETIME ONE Stop: 02/17/19 09:50 Last Admin: 02/17/19 13:06 Dose: Not Given Lidocaine (Xylocaine-Mpf 2%) Confirm Administered Dose 5 ml .ROUTE .[facility] ONE Stop: 02/17/19 06:57 Metoprolol Tartrate (Lopressor) Confirm Administered Dose 5 mg .ROUTE .[facility] ONE Stop: 02/17/19 08:35 Midazolam HCl (Versed 1 Mg/Ml) Confirm Administered Dose 2 mg .ROUTE .[facility] ONE Stop: 02/17/19 06:57 Neostigmine Methylsulfate (Neostigmine) Confirm Administered Dose 5 mg .ROUTE .[facility] ONE Stop: 02/17/19 06:59 Octyl Cyanoacrylate (Dermabond Advance) Confirm Administered Dose 1 applic .ROUTE .[facility] ONE Stop: 02/17/19 09:45 Ondansetron HCl (Zofran) Confirm Administered Dose 4 mg .ROUTE .[facility] ONE Stop: 02/17/19 06:57 Phenylephrine HCl (Phenylephrine In Ns 100 Mcg/Ml) Confirm Administered Dose 1 mg .ROUTE .STK-MED ONE Stop: 02/17/19 08:31 Propofol (Diprivan 20 Ml) Confirm Administered Dose 200 mg .ROUTE .STK-MED ONE Stop: 02/17/19 06:57 Rocuronium [place] (Zemuron) Confirm Administered Dose 100 mg .ROUTE .STK-MED ONE Stop: 02/17/19 06:57 Succinylcholine Chloride (Succinylcholine Chloride) Confirm Administered Dose 200 mg .ROUTE .STK-MED ONE Stop: 02/17/19 06:57 - Exam Wound/Incisions: Healing Well General: Alert, Oriented HEENT: Pupils Equal Neck: Supple Lungs: Clear to Auscultation, Normal Respiratory Effort Cardiovascular: Regular Rate, Regular Rhythm GI/Abdominal Exam: Normal Bowel Sounds, Soft, Non-Tender, No Organomegaly, No Distention, No Abnormal Bruit, No Mass, Pelvis Stable Extremities: Normal Inspection, Normal Range of Motion, Non-Tender, No Pedal Edema, Normal Capillary Refill Skin: Warm, Dry, Intact Neurological: No New Focal Deficit Psy/Mental Status: Alert, Normal Affect, Normal Mood - Problem List Review Problem List Initiated/Reviewed/Updated: Yes - My Orders Last 24 Hours: Active Orders 24 hr Category Date Time Status Patient Status [ADT] Routine ADT 02/17/19 09:49 Active Olivares Catheter Insertion [Insert Urinary Catheter] [OM. Care 02/17/19 17:45 Ordered PC] Q24H Notify Provider Vital Signs [RC] ASDIRECTED Care 02/17/19 09:49 Active RT Aerosol Therapy [RC] ASDIRECTED Care 02/17/19 08:59 Active RT Incentive Spirometry [RC] Q2HWA Care 02/17/19 09:49 Active Up With Assistance [RC] PER UNIT ROUTINE Care 02/17/19 09:49 Active Up ad Angela [RC] PER UNIT ROUTINE Care 02/17/19 09:49 Active Urinary Catheter Assessment [RC] ASDIRECTED Care 02/17/19 17:45 Active Regular Diet [DIET] Diet 02/17/19 Lunch Active Acetaminophen/oxyCODONE [Percocet 325-5 MG] Med 02/17/19 09:49 Active 1 tab PO Q4H PRN Acetaminophen/oxyCODONE [Percocet 325-5 MG] Med 02/17/19 09:49 Active 2 tab PO Q4H PRN Albuterol [Proventil Neb Soln] Med 02/17/19 08:59 Active 2.5 mg NEB ONETIME PRN Atropine [Atropine 0.1 MG/ML] Med 02/17/19 08:59 Active 0.5 mg IVPUSH ASDIRECTED PRN Atropine [Atropine 0.1 MG/ML] Med 02/17/19 08:59 Active 1 mg IVPUSH ASDIRECTED PRN Dextrose 50% in Water Med 02/17/19 08:59 Active 50 ml IVPUSH ASDIRECTED PRN EPINEPHrine [EPINEPHrine 1:10,000] Med 02/17/19 08:59 Active 1 mg IVPUSH ASDIRECTED PRN Ketorolac [Toradol] Med 02/17/19 09:49 Active 30 mg IVPUSH Q6H PRN Morphine Med 02/17/19 09:49 Active 4 mg IVPUSH Q2H PRN Naloxone [Narcan] Med 02/17/19 08:59 Active 0.1 mg IVPUSH ASDIRECTED PRN Ondansetron [Zofran] Med 02/17/19 09:49 Active 4 mg IVPUSH Q6H PRN Promethazine [Phenergan] Med 02/17/19 09:49 Active 25 mg IM Q6H PRN fentaNYL [Sublimaze] Med 02/17/19 08:59 Active 50 mcg IVPUSH Q5M PRN Peripheral IV Discontinue [OM.PC] Routine Oth 02/17/19 09:49 Ordered Sequential Compression Device [OM.PC] Per Unit Routine Oth 02/17/19 09:49 Ordered Resuscitation Status Routine Resus Stat 02/17/19 09:49 Ordered Medication Orders Albuterol (Proventil Neb Soln) 2.5 mg NEB ONETIME PRN PRN Reason: Wheezing Atropine Sulfate (Atropine 0.1 Mg/Ml) 0.5 mg IVPUSH ASDIRECTED PRN PRN Reason: Hypo-perfusion Atropine Sulfate (Atropine 0.1 Mg/Ml) 1 mg IVPUSH ASDIRECTED PRN PRN Reason: Hypo-Perfusion Dextrose/Water (Dextrose 50% In Water) 50 ml IVPUSH ASDIRECTED PRN PRN Reason: Hypoglycemia Epinephrine HCl (Epinephrine 1:10,000) 1 mg IVPUSH ASDIRECTED PRN PRN Reason: ACLS Guidelines Fentanyl (Sublimaze) 50 mcg IVPUSH Q5M PRN PRN Reason: Pain Lactated Ringer's (Ringers, Lactated) 1,000 mls @ 125 mls/hr IV ASDIRECTED SONIA Last Admin: 02/17/19 23:30 Dose: 125 mls/hr Infusion: 02/17/19 23:28 Dose: 125 mls/hr Admin: 02/17/19 15:28 Dose: 125 mls/hr Infusion: 02/17/19 15:25 Dose: 125 mls/hr Admin: 02/17/19 07:25 Dose: 125 mls/hr Ketorolac Tromethamine (Toradol) 30 mg IVPUSH Q6H PRN PRN Reason: Pain (severe 7-10) Stop: 02/22/19 09:49 Last Admin: 02/17/19 18:37 Dose: 30 mg Morphine Sulfate (Morphine) 4 mg IVPUSH Q2H PRN PRN Reason: Pain (severe 7-10) Naloxone HCl (Narcan) 0.1 mg IVPUSH ASDIRECTED PRN PRN Reason: Respiratory Depression Ondansetron HCl (Zofran) 4 mg IVPUSH Q6H PRN PRN Reason: Nausea/Vomiting Oxycodone/Acetaminophen (Percocet 325-5 Mg) 1 tab PO Q4H PRN PRN Reason: Pain (moderate 4-6) Oxycodone/Acetaminophen (Percocet 325-5 Mg) 2 tab PO Q4H PRN PRN Reason: Pain (moderate 4-6) Last Admin: 02/18/19 03:34 Dose: 2 tab Admin: 02/17/19 20:09 Dose: 2 tab Promethazine HCl (Phenergan) 25 mg IM Q6H PRN PRN Reason: Nausea/Vomiting Scopolamine (Transderm-Scop) 1.5 mg TRDERM Q72H PRN PRN Reason: Nausea/Vomiting Last Admin: 02/17/19 07:50 Dose: 1.5 mg Sodium Chloride (Saline Flush) 10 ml FLUSH ASDIRECTED PRN PRN Reason: Keep Vein Open Sodium Chloride (Saline Flush) 2.5 ml FLUSH ASDIRECTED PRN PRN Reason: Keep Vein Open Sodium Chloride (Normal Saline) 10 ml IV ASDIRECTED PRN PRN Reason: IV Use - Assessment Assessment (Free Text/Narrative):: Status post hysterectomy postoperative day #1 patient is doing well voiding without any problem nonbleeding pain-free ambulatory and on regular diet - Plan Plan (Free Text/Narrative):: Patient will be sent home today the postvasectomy instruction would be given to the patient and prescription for Narco 5 tablet to take when necessary for pain and the patient have follow-up examination in 1 week
--- NOTE | 2019-02-18 10:31 | PCM48HPAN ---
Post Anesthesia Note - EVALUATION WITHIN 48HRS OF ANESTHETIC Vital Signs in Normal Range: Yes Patient Participated in Evaluation: Yes Respiratory Function Stable: Yes Airway Patent: Yes Cardiovascular Function Stable: Yes Hydration Status Stable: Yes Pain Control Satisfactory: Yes Nausea and Vomiting Control Satisfactory: Yes Mental Status Recovered: Yes Pulse Rate: 110 Resp Rate: 16
== END 2019-02-18 10:15 | disposition home or self-care (01) ==
LOC: MW.SDS 06:19 → MW.MS 09:49 → MW.SDS 02-18 10:15
PROVIDERS: ATTEND Obstetrics & Gynecology
DX: D26.1 Other benign neoplasm of corpus uteri (principal); N92.1 Excessive and frequent menstruation with irregular cycle; F41.9 Anxiety disorder, unspecified; F32.9 Major depressive disorder, single episode, unspecified; F17.210 Nicotine dependence, cigarettes, uncomplicated; N85.8 Other specified noninflammatory disorders of uterus; Z79.899 Other long term (current) drug therapy; Z88.1 Allergy status to other antibiotic agents; Z88.0 Allergy status to penicillin
CPT/HCPCS: 36415; 51701; 51702; 58572; 80048; 84703; 85025; 85027; 86850; 86900; 86901; 86920; 86921; 86922; 88307; A9270; J0690; J1100; J1170; J1885; J1940; J2001; J2250; J2370; J2405; J2704; J3010; J3490; J7120; 00840; J0330

== ENCOUNTER 2020-03-31 03:31 | Emergency (ER) | payer BC ==
[2020-03-31] MEDS ORDERED: Bupivacaine 0.5% 30 ML SDV INFILT ONE (03:39)
[2020-03-31] MEDS ORDERED: Diphtheria,Pertussis(Acell),Tetanus Vaccine 0.5 ML Syringe IM ONE (03:39)
[2020-03-31] MEDS ORDERED: Bupivacaine 0.5% 10 ML SDV ONE (04:18)
[2020-03-31] MEDS ORDERED: Bupivacaine 0.5% 10 ML SDV INJECT ONE (05:17)
--- NOTE | 2020-03-31 05:23 | CR ---
INDICATION: Laceration of bottom of foot from glass TECHNIQUE: Three views right foot COMPARISON: None FINDINGS: Bones: Alignment is normal. No fractures or bone lesions. Joint spaces: Unremarkable. Soft tissues: Plantar soft tissue laceration adjacent to the base of the metatarsal bones. IMPRESSION: Plantar soft tissue laceration adjacent to the base of the metatarsal bones. No radiopaque foreign bodies. Dictated by Ethan Goel MD @ 03/31/2020 5:22:14 AM Dictated by: Ethan Goel MD @ 03/31/2020 05:22:22 (Electronically Signed)
--- NOTE | 2020-03-31 06:14 | EDM.PDOC ---
ED HPI GENERAL MEDICAL PROBLEM - General Chief Complaint: Laceration Stated Complaint: RT FOOT LACERATION Time Seen by Provider: 03/31/20 03:36 Source of Information: Reports: Patient History Limitations: Reports: No Limitations - History of Present Illness INITIAL COMMENTS - FREE TEXT/NARRATIVE: 39-year-old female with no past medical history presenting with a laceration to the sole of her right foot. About 1 hour prior to arrival, the patient was swimming in a pool and stepped out onto some broken glass, causing her to sustain a laceration. Tetanus immunization status is uncertain, no other complaints, no self treatment prior to arrival. Right Feet Pain Score (Numeric/FACES): 6 - Related Data Allergies Allergy/AdvReac Type Severity Reaction Status Date / Time ciprofloxacin [From Cipro] Allergy Hives Verified 03/31/20 03:40 Penicillins Allergy "sores on Verified 03/31/20 03:40 lips" Home Meds: Home Meds Venlafaxine [Effexor] 150 mg PO DAILY 09/21/17 [History] LORazepam 1 mg PO ASDIRECTED PRN 02/11/19 [History] Past Medical History HEENT History: Reports: Other (See Below) Other HEENT History: wears glasses Cardiovascular History: Reports: None Respiratory History: Reports: None Gastrointestinal History: Reports: Pancreatitis Genitourinary History: Reports: None 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: Musculoskeletal History: Reports: Fracture Other Musculoskeletal History: hx fx ankle Neurological History: Reports: None Psychiatric History: Reports: Anxiety, Depression Endocrine/Metabolic History: Reports: None Hematologic History: Reports: None Immunologic History: Reports: None Oncologic (Cancer) History: Reports: None Dermatologic History: Reports: None - Infectious Disease History Infectious Disease History: Reports: None - Past Surgical History Head Surgeries/Procedures: Reports: None HEENT Surgical History: Reports: Adenoidectomy, Tonsillectomy Respiratory Surgical History: Reports: None GI Surgical History: Reports: None Female Surgical History: Reports: Section Endocrine Surgical History: Reports: None Neurological Surgical History: Reports: None Musculoskeletal Surgical History: Reports: None Oncologic Surgical History: Reports: None Dermatological Surgical History: Reports: None Social & Family History - Family History Family Medical History: Noncontributory - Tobacco Use Smoking Status *Q: Current Every Day Smoker Years of Tobacco use: 20 Packs/Tins Daily: 0.5 - Caffeine Use Caffeine Use: Reports: None - Alcohol Use Days Per Week of Alcohol Use: 1 Number of Drinks Per Day: 4 Total Drinks Per Week: 4 - Recreational Drug Use Recreational Drug Use: No ED ROS GENERAL - Review of Systems Review Of Systems: See Below Respiratory: Denies: Shortness of Breath Cardiovascular: Denies: Chest Pain Skin: Reports: Wound Neurological: Denies: Numbness, Paresthesia, Tingling ED EXAM, SKIN/RASH Exam: See Below Text/Narrative:: Vital signs reviewed. Nursing notes reviewed. Constitutional: Awake, alert, non-distressed. Head: Normocephalic, atraumatic. Eyes: EOMI, conjunctiva normal, no discharge, no scleral icterus. Ears, Nose, Throat: External ears and ears normal, moist oral mucosa. Cardiovascular: 2+ right dorsalis pedis pulse, capillary refill less than 2 seconds in all toes of the right foot. Pulmonary: normal work of breathing, no accessory muscle use. Abdomen/GI: Soft, nontender, nondistended, no guarding or rigidity, no masses. Musculoskeletal: No deformities. Integumentary: Appropriate color for ethnicity, warm, dry, no pallor or jaundice , no rash. Approximately 4 cm wide linear laceration to the dorsum of the right foot. Neurologic: Alert, answering questions appropriately, normal speech, no facial droop, moving all extremities well. Sensation intact light touch to all 5 toes of the right foot Psychiatric: Appropriate mood and affect, normal thought process. ED SKIN PROCEDURES - Laceration/Wound Repair Ventral Foot Appearance: Superficial Distal NVT: Neuro & Vascular Intact Anesthetic Type: Local Local Anesthesia - Bupivicaine (Marcaine): 0.5% Plain Local Anesthetic Volume: 5cc Skin Prep: Saline Exploration/Debridement/Repair: Wound Explored, In a Bloodless Field, No Foreign Material Found Closed with: Sutures Lac/Wound length In cm: 4 Suture Size: 3-0 # of Sutures: 10 Drain Placement: No Tetanus Status Addressed: Yes Complications: No Course - Vital Signs Text/Narrative:: Patient hemodynamically stable, afebrile, well-appearing, looks nontoxic. Differential diagnosis includes but is not limited to: Laceration, retained foreign body, muscle injury, vascular injury, nerve injury, etc. X-rays were obtained, which were negative for foreign body. Patient underwent local anesthesia, copious irrigation, and wound repair as detailed in the procedure documentation. Stable to discharge home with suture removal in 10 to 14 days. Recommend [id number] antibiotic ointment once or twice daily. Strict emergency department return precautions were provided, patient indicated understanding. All questions were answered prior to departure. Discharged in good condition. Last Recorded V/S: Last Vital Signs Temp 35.9 C L 03/31/20 06:30 Pulse 128 H 03/31/20 06:30 Resp 18 03/31/20 06:30 BP 125/82 03/31/20 06:30 Pulse Ox 97 03/31/20 06:30 - Orders/Labs/Meds Orders: Active Orders 24 hr Category Date Time Status Procedure Tray at Bedside [RC] ASDIRECTED Care 03/31/20 03:39 Active Vaccines to be Administered [RC] PER UNIT ROUTINE Care 03/31/20 03:40 Active Meds: Medications Discontinued Medications Generic Name Dose Route Start Last Admin Trade Name Freq PRN Reason Stop Dose Admin Bupivacaine HCl 10 ml 03/31/20 03:39 03/31/20 05:20 Marcaine 0.5% INFILT 03/31/20 03:40 Not Given ONETIME ONE Bupivacaine HCl Confirm 03/31/20 04:18 03/31/20 05:20 Sensorcaine-Mpf 0.5% Administered 03/31/20 04:19 Not Given Dose 10 ml .ROUTE .STK-MED ONE Bupivacaine HCl 10 ml 03/31/20 05:17 03/31/20 05:20 Sensorcaine-Mpf 0.5% INJECT 03/31/20 05:18 10 ml ONETIME ONE Administration Diphtheria/Tetanus/Acell Pertussis 0.5 ml 03/31/20 03:39 03/31/20 05:16 Adacel IM 03/31/20 03:40 0.5 ml .ONCE ONE Administration Departure - Departure Time of Disposition: 06:17 Disposition: Home, Self-Care 01 Condition: Good Clinical Impression: Laceration of right foot Qualifiers: Encounter type: initial encounter Qualified Code(s): S91.311A - Laceration without foreign body, right foot, initial encounter - Discharge Information *PRESCRIPTION DRUG MONITORING PROGRAM REVIEWED*: Not Applicable *COPY OF PRESCRIPTION DRUG MONITORING REPORT IN PATIENT AMOR: Not Applicable Instructions: Laceration Care, Adult, Sutured Wound Care Referrals: Emergency Medicine [Provider Group] - 2 Weeks (Return to the emergency department in 10 to 14 days for suture removal.) Forms: ED Department Discharge Additional Instructions: Your sutures are nonabsorbable. You will need to return to the emergency department or another medical clinic in 10 to 14 days to have your sutures removed. You can take [id number] acetaminophen or ibuprofen as needed for pain. You can apply triple antibiotic ointment to your wounds twice a day. If you notice any redness, swelling, fever, or drainage, please return the emergency department to be reevaluated. The following information is given to patients seen in the emergency department who are being discharged to home. This information is to outline your options for follow-up care. We provide all patients seen in our emergency department with a follow-up referral. The need for follow-up, as well as the timing and circumstances, are variable depending upon the specifics of your emergency department visit. If you don't have a primary care physician on staff, we will provide you with a referral. We always advise you to contact your personal physician following an emergency department visit to inform them of the circumstance of the visit and for follow-up with them and/or the need for any referrals to a consulting specialist. The emergency department will also refer you to a specialist when appropriate. This referral assures that you have the opportunity for follow-up care with a specialist. All of these measure are taken in an effort to provide you with optimal care, which includes your follow-up. Under all circumstances we always encourage you to contact your private physician who remains a resource for coordinating your care. When calling for follow-up care, please make the office aware that this follow-up is from your recent emergency room visit. If for any reason you are refused follow-up, please contact the [facility] Emergency Department at and asked to speak to the emergency department charge nurse. If you do not have a primary care physician that is caring for you, you can contact these clinics below to set up an appointment to establish care: [facility] - Primary Care [address] [place] [address] [id number] [address] [address] Sepsis Event Note - Evaluation Sepsis Screening Result: No Definite Risk - Focused Exam Date Exam was Performed: 03/31/20 Time Exam was Performed: 19:20 - My Orders Last 24 Hours: My Active Orders 03/31/20 03:39 Procedure Tray at Bedside [RC] ASDIRECTED 03/31/20 03:40 Vaccines to be Administered [RC] PER UNIT ROUTINE - Assessment/Plan Last 24 Hours: My Active Orders 03/31/20 03:39 Procedure Tray at Bedside [RC] ASDIRECTED 03/31/20 03:40 Vaccines to be Administered [RC] PER UNIT ROUTINE
[2020-03-31 06:31] VITALS: BP 125/82; PULSE 128
== END 2020-03-31 06:31 | disposition home or self-care (01) ==
LOC: MW.ED 03:31
DX: S91.311A Laceration without foreign body, right foot, initial encounter (principal); F41.9 Anxiety disorder, unspecified; F32.9 Major depressive disorder, single episode, unspecified; F17.210 Nicotine dependence, cigarettes, uncomplicated; Z88.1 Allergy status to other antibiotic agents; Z88.0 Allergy status to penicillin; Z79.899 Other long term (current) drug therapy; Z23 Encounter for immunization; W25.XXXA Contact with sharp glass, initial encounter
CPT/HCPCS: 12002; 73630; 90471; 90715; 99283; J3490; 99282

== ENCOUNTER 2020-04-13 10:11 | Emergency (ER) | payer BC ==
[2020-04-13 13:52] VITALS: BP 126/77; PULSE 100
== END 2020-04-13 10:53 | disposition home or self-care (01) ==
LOC: MW.ED 10:11
DX: Z53.21 Procedure and treatment not carried out due to patient leaving prior to being seen by health care provider (principal)

== ENCOUNTER 2020-11-04 11:01 | Emergency (ER) | payer BC ==
[2020-11-04] MEDS ORDERED: Sodium Chloride 0.9% 1,000 ML IV ONE (11:04)
[2020-11-04] MEDS ORDERED: LORazepam 2 MG/ML SDV IVPUSH ONE (11:12)
--- NOTE | 2020-11-04 11:56 | CT ---
INDICATION: Headaches TECHNIQUE: Non-contrast CT of the head is submitted. No comparisons. FINDINGS: The ventricles, sulci and gyri are of normal size, shape and contour. Midline structures are centrally located. No convincing evidence of intra- or extra-axial fluid collections. IMPRESSION: 1. No radiographic evidence of acute intracranial abnormalities. Please note that all CT scans at this facility use dose modulation, iterative reconstruction, and/or weight-based dosing when appropriate to reduce radiation dose to as low as reasonably achievable. Dictated by Lev Alcantara MD @ Nov 04 2020 11:54AM Signed by Dr. Lev Alcantara @ Nov 04 2020 11:55AM
[2020-11-04] MEDS ORDERED: Metoclopramide 10 MG/2 ML SDV IV ONE (12:00)
[2020-11-04] MEDS ORDERED: diphenhydrAMINE 50 MG/ML SDV IVPUSH ONE (12:00)
[2020-11-04] MEDS ORDERED: Ketorolac 30 MG/ML SDV IVPUSH ONE (12:00)
--- NOTE | 2020-11-04 12:30 | EDM.PDOC ---
ED HPI GENERAL MEDICAL PROBLEM - General Chief Complaint: Headache Stated Complaint: EMS ARRIVAL Time Seen by Provider: 11/04/20 11:02 Source of Information: Reports: Patient History Limitations: Reports: No Limitations - History of Present Illness INITIAL COMMENTS - FREE TEXT/NARRATIVE: HISTORY AND PHYSICAL: History of present illness: Patient is a 39-year-old female who presents the emergency room today via EMS with concern of headache that started a few hours prior to travel to the ED. Patient states that initially started in the back of her left side of her head and throughout the course of the past several hours has now gone to the front left side of her head. Patient describes as throbbing and also expresses photophobia. Patient denies any head injury or trauma. Patient states that she does not have frequent headaches and this headache does feel unusual to her. Patient states she has a history of anxiety and due to the severity of the headache, states that her anxiety is heightened. Patient denies any other associated symptoms. She states she does have a history of anxiety and panic disorder and has Ativan available to her as needed. Patient states that she does not routinely take Ativan but following the onset of her headache, she states that she felt so anxious she took 0.5 mg of Ativan 2 hours ago. Patient denies fever, chills, chest pain, shortness of breath, or cough. Denies neck stiff ness, change in vision, syncope, or near syncope. Denies nausea, vomiting, abdominal pain, diarrhea, constipation, or dysuria. Has not noted any blood in urine or stool. Patient has been eating and drinking appropriately. Review of systems: As per history of present illness and below otherwise all systems reviewed and negative. Past medical history: As per history of present illness and as reviewed below otherwise noncontributory. Surgical history: As per history of present illness and as reviewed below otherwise noncontributory. Social history: See social history for further information Family history: As per history of present illness and as reviewed below otherwise noncontributory. Physical exam: General: Patient is alert, oriented, and in no acute distress. Patient laying on exam table, anxious appearing, and tearful on exam. Patient is tachycardic 115's to 120s on initial exam. Otherwise vitally stable. HEENT: Atraumatic, normocephalic, pupils equal and reactive bilaterally, negative for conjunctival pallor or scleral icterus, mucous membranes moist, TMs normal bilaterally, throat clear, neck supple, nontender, trachea midline. No drooling or trismus noted. No meningeal signs. No hot potato voice noted. Lungs: Clear to auscultation, breath sounds equal bilaterally, chest nontender. Heart: S1S2, regular rate and rhythm without overt murmur Abdomen: Soft, nondistended, nontender. Negative for masses or hepatosplenomegaly. Negative for costovertebral tenderness. Pelvis: Stable nontender. Genitourinary: Deferred. Rectal: Deferred. Skin: Intact, warm, dry. No lesions or rashes noted. Extremities: Atraumatic, negative for cords or calf pain. Neurovascular unremarkable. Neuro: Awake, alert, oriented. Cranial nerves II through XII unremarkable. Cerebellum unremarkable. Motor and sensory unremarkable throughout. Exam nonfocal. Notes: Patient was given 4 mg of Zofran by EMS in route. Patient is tachycardic 115's to 120s on initial exam, however, she does appear quite anxious and tearful on exam. Will reassess heart rate after therapeutics given. On reevaluation of patient, she is much more comfortable and no longer tearful on exam. She expresses resolution of her headache with therapeutics given today in the ED. Reassessment of patient's vital signs, she remains vitally stable throughout stay in ED and tachycardia has resolved and she is now 90 bpm on my reevaluation. Strict return precautions thoroughly discussed with patient. Discussed importance for follow-up with a primary care provider. Voices understanding and is agreeable to plan of care. Denies any further questions or concerns at this time. Diagnostics: Head CT Therapeutics: NS, Benadryl, Toradol, Reglan, Ativan Prescription: None Impression: Headache, resolved Anxiety Plan: 1. Encourage small frequent sips of fluid to prevent dehydration. 2. You can alternate ibuprofen and Tylenol as directed for pain and discomfort. 3. Follow-up with a primary care provider as discussed. Return to the ED as needed and as discussed. Definitive disposition and diagnosis as appropriate pending reevaluation and review of above. headache Pain Score (Numeric/FACES): 7 - Related Data Allergies Allergy/AdvReac Type Severity Reaction Status Date / Time ciprofloxacin [From Cipro] Allergy Hives Verified 11/04/20 11:03 iodine Allergy Other Verified 11/04/20 11:03 Penicillins Allergy "sores on Verified 11/04/20 11:03 lips" Home Meds: Home Meds Venlafaxine [Effexor] 150 mg PO DAILY 09/21/17 [History] LORazepam 1 mg PO ASDIRECTED PRN 02/11/19 [History] Past Medical History HEENT History: Reports: Other (See Below) Other HEENT History: wears glasses Cardiovascular History: Reports: None Respiratory History: Reports: None Gastrointestinal History: Reports: Pancreatitis Genitourinary History: Reports: None 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: Musculoskeletal History: Reports: Fracture Other Musculoskeletal History: hx fx ankle Neurological History: Reports: None Psychiatric History: Reports: Anxiety, Depression Endocrine/Metabolic History: Reports: None Hematologic History: Reports: None Immunologic History: Reports: None Oncologic (Cancer) History: Reports: None Dermatologic History: Reports: None - Infectious Disease History Infectious Disease History: Reports: None - Past Surgical History Head Surgeries/Procedures: Reports: None HEENT Surgical History: Reports: Adenoidectomy, Tonsillectomy Respiratory Surgical History: Reports: None GI Surgical History: Reports: None Female Surgical History: Reports: Section Endocrine Surgical History: Reports: None Neurological Surgical History: Reports: None Musculoskeletal Surgical History: Reports: None Oncologic Surgical History: Reports: None Dermatological Surgical History: Reports: None Social & Family History - Family History Family Medical History: No Pertinent Family History - Tobacco Use Tobacco Use Status *Q: Light Tobacco User Years of Tobacco use: 20 Packs/Tins Daily: 1 - Caffeine Use Caffeine Use: Reports: Coffee - Recreational Drug Use Recreational Drug Use: No ED ROS GENERAL - Review of Systems Review Of Systems: Comprehensive ROS is negative, except as noted in HPI. ED EXAM, GENERAL - Physical Exam Exam: See Below (see dictation) Course - Vital Signs Last Recorded V/S: Last Vital Signs Temp 97.4 F 11/04/20 11:53 Pulse 114 H 11/04/20 12:02 Resp 24 H 11/04/20 11:04 BP 140/87 11/04/20 12:02 Pulse Ox 97 11/04/20 11:53 - Orders/Labs/Meds Labs: Laboratory Tests 11/04/20 Range/Units 11:00 WBC 5.36 (4.0-11.0) K/uL RBC 4.45 (4.30-5.90) M/uL Hgb 13.3 (12.0-16.0) g/dL Hct 41.1 (36.0-46.0) % MCV 92.4 (80.0-98.0) fL MCH 29.9 (27.0-32.0) pg MCHC 32.4 (31.0-37.0) g/dL RDW Std Deviation 42.0 (28.0-62.0) fl RDW Coeff of Ludwin 12 (11.0-15.0) % Plt Count 383 (150-400) K/uL MPV 9.00 (7.40-12.00) fL Neut % (Auto) 44.6 L (48.0-80.0) % Lymph % (Auto) 45.7 H (16.0-40.0) % Schleicher % (Auto) 8.6 (0.0-15.0) % Eos % (Auto) 0.9 (0.0-7.0) % Baso % (Auto) 0.2 (0.0-1.5) % Neut # (Auto) 2.4 (1.4-5.7) K/uL Lymph # (Auto) 2.5 H (0.6-2.4) K/uL Schleicher # (Auto) 0.5 (0.0-0.8) K/uL Eos # (Auto) 0.1 (0.0-0.7) K/uL Baso # (Auto) 0.0 (0.0-0.1) K/uL Nucleated RBC % 0.0 /100WBC Nucleated RBCs # 0 K/uL Meds: Medications Discontinued Medications Generic Name Dose Route Start Last Admin Trade Name Freq PRN Reason Stop Dose Admin Diphenhydramine HCl 50 mg 11/04/20 12:00 11/04/20 12:10 Benadryl IVPUSH 11/04/20 12:01 50 mg ONETIME ONE Administration Sodium Chloride 1,000 mls @ 999 mls/hr 11/04/20 11:04 11/04/20 11:11 Normal Saline IV 11/04/20 12:04 999 mls/hr STAT ONE Administration Ketorolac Tromethamine 30 mg 11/04/20 12:00 01/03/21 12:10 Toradol IVPUSH 11/04/20 12:01 30 mg ONETIME ONE Administration Lorazepam 0.5 mg 11/04/20 11:12 11/04/20 11:16 Ativan IVPUSH 11/04/20 11:13 0.5 mg ONETIME ONE Administration Metoclopramide HCl 10 mg 11/04/20 12:00 11/04/20 12:11 Reglan IV 11/04/20 12:01 10 mg ONETIME ONE Administration Departure - Departure Time of Disposition: 12:30 Disposition: Home, Self-Care 01 Clinical Impression: Anxiety Headache Qualifiers: Headache type: unspecified Headache chronicity pattern: unspecified pattern Intractability: not intractable Qualified Code(s): R51.9 - Headache, unspecified - Discharge Information Referrals: PCP,None [Primary Care Provider] - Forms: ED Department Discharge Additional Instructions: The following information is given to patients seen in the emergency department who are being discharged to home. This information is to outline your options for follow-up care. We provide all patients seen in our emergency department with a follow-up referral. The need for follow-up, as well as the timing and circumstances, are variable depending upon the specifics of your emergency department visit. If you don't have a primary care physician on staff, we will provide you with a referral. We always advise you to contact your personal physician following an emergency department visit to inform them of the circumstance of the visit and for follow-up with them and/or the need for any referrals to a consulting specialist. The emergency department will also refer you to a specialist when appropriate. This referral assures that you have the opportunity for follow-up care with a specialist. All of these measure are taken in an effort to provide you with optimal care, which includes your follow-up. Under all circumstances we always encourage you to contact your private physician who remains a resource for coordinating your care. When calling for follow-up care, please make the office aware that this follow-up is from your recent emergency room visit. If for any reason you are refused follow-up, please contact the [facility] Emergency Department at and asked to speak to the emergency department charge nurse. [facility] [address] [place] [id number] [facility] [address] [place] [address] 1. Encourage small frequent sips of fluid to prevent dehydration. 2. You can alternate ibuprofen and Tylenol as directed for pain and discomfort. 3. Follow-up with a primary care provider as discussed. Return to the ED as needed and as discussed. Sepsis Event Note (ED) - Evaluation Sepsis Screening Result: No Definite Risk - Focused Exam Vital Signs: Vital Signs Temp Pulse Resp BP Pulse Ox 11/04/20 12:02 114 H 140/87 11/04/20 11:53 97.4 F 116 H 141/87 H 97 11/04/20 11:04 97.7 F 128 H 24 H 120/78 100 11/04/20 11:03 120 H 126/76
[2020-11-04 12:50] VITALS: BP 128/82; PULSE 94
== END 2020-11-04 12:46 | disposition home or self-care (01) ==
LOC: MW.ED 11:01
DX: R51.9 Headache, unspecified (principal); F41.9 Anxiety disorder, unspecified; F32.9 Major depressive disorder, single episode, unspecified; F17.210 Nicotine dependence, cigarettes, uncomplicated; Z88.1 Allergy status to other antibiotic agents; Z88.8 Allergy status to other drugs, medicaments and biological substances; Z88.0 Allergy status to penicillin; Z79.899 Other long term (current) drug therapy
CPT/HCPCS: 36415; 70450; 85025; 96374; 96375; 99285; J1200; J1885; J2060; J2765; J7030; 99283